=== PATIENT | male | born 1955 | race Caucasian/White ===

== ENCOUNTER 2017-06-26 21:43 | Emergency (ER) | payer MEDICAID ==
[2017-06-26 21:43] VITALS: BMI 27.3
[2017-06-26 21:55] VITALS: TEMP 98.6
[2017-06-26 22:04] LABS: HEMATOCRIT 52.4 % (35.0-51.0); MEAN CELL VOLUME 82.5 fL (80.0-94.0); MEAN CORPUSCULAR HEMOGLOBIN 27.9 pg (27.0-31.0); MEAN CORPUSCULAR HGB CONC 33.9 g/dL (33.0-37.0); RED CELL DISTRIBUTION WIDTH 15.4 % (11.5-14.5); WHITE BLOOD COUNT 11.1 K/uL (4.8-10.8)
[2017-06-26 22:14] LABS: CHLORIDE 93 mmol/L (98-107); SODIUM 133 mmol/L (132-148)
[2017-06-26 22:15] LABS: POTASSIUM 4.1 mmol/L (3.6-5.2)
[2017-06-26 22:16] LABS: AST/SGOT 29 U/L (17-59); BILIRUBIN,TOTAL 0.5 mg/dL (0.2-1.3); CARBON DIOXIDE 26 mmol/L (22-30); GFR AFRICAN-AMERICAN > 60
[2017-06-26 22:17] LABS: ALB/GLOB RATIO 1.3 (1.0-2.1); ALKALINE PHOSPHATASE 39 U/L (38-126); ALT/SGPT 23 U/L (21-72); BLOOD UREA NITROGEN 18 mg/dL (9-20); CALCIUM 9.1 mg/dl (8.6-10.4); GLUCOSE,RANDOM 90 mg/dL (75-110); TOTAL PROTEIN 8.1 g/dL (6.3-8.3)
[2017-06-26] MEDS ORDERED: Albuterol-Ipratrop 3 mg / 0.5 (3 ml) UD ONE (22:20)
[2017-06-26] MEDS ORDERED: Albuterol 0.083% Inhal Sol (2.5 mg/3 mL) UD INH ONE (22:28)
[2017-06-26] MEDS ORDERED: Albuterol 0.083% Inhal Sol (2.5 mg/3 mL) UD ONE (22:29)
--- NOTE | 2017-06-26 22:29 | C.PDOC ---
History Of Present Illness 61 year old male with a history of Diabetes and bronchospasms presents to the ED with complaints of constant shortness of breath exacerbated by deep breathing and right shoulder pain beginning four hours prior to arrival, while driving. Patient notes he smokes at least one pack of cigarettes a day. He denies fever, vomiting, or diarrhea. 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 ) History/Exam Limitations: no limitations Current Symptoms Are (Timing): Still Present Quality: "Pain" Associated Symptoms: denies: Dyspnea, Diaphoresis Modifying Factors: None Exacerbating Factors: Deep Breathing Alleviating Factors: None Recent travel outside of the [place]: No Past Medical History Reviewed: Historical Data, Nursing Documentation, Vital Signs Vital Signs: Last Vital Signs Temp 98.6 F 06/26/17 21:50 Pulse 98 H 06/27/17 00:19 Resp 20 06/27/17 00:19 BP 127/77 06/27/17 00:19 Pulse Ox 94 L 06/27/17 00:38 - Medical History PMH: No Chronic Diseases, Bronchitis, COPD - [facility] Procedures APPLICATION OF SPLINT (06/25/07) TETANUS TOXOID ADMINIST (06/25/07) Family History: States: Unknown Family Hx - Social History Hx Tobacco Use: Yes Hx Alcohol Use: Yes Hx Substance Use: No - Immunization History Hx Tetanus Toxoid Vaccination: No Hx Influenza Vaccination: No Hx Pneumococcal Vaccination: No Review Of Systems Constitutional: Negative for: Fever, Chills Cardiovascular: Negative for: Palpitations Respiratory: Positive for: Shortness of Breath Gastrointestinal: Negative for: Nausea, Vomiting, Abdominal Pain, Diarrhea Musculoskeletal: Positive for: Shoulder Pain (right shoulder ) Neurological: Negative for: Weakness, Numbness Physical Exam - Physical Exam Appears: Non-toxic, In Acute Distress (mild respiratory distress, 28 respirations per minute ) Skin: Warm, Dry Head: Atraumatic, Normacephalic Eye(s): bilateral: Normal Inspection, PERRL, EOMI Oral Mucosa: Moist Neck: Supple Chest: Symmetrical, No Deformity, No Tenderness Cardiovascular: Rhythm Regular, No Murmur Respiratory: Other (diminished breath sounds bilaterally, few expiratory wheezes. Labored breathing, poor air movement. ) Gastrointestinal/Abdominal: Soft, No Tenderness Extremity: Normal ROM, No Tenderness, No Pedal Edema, No Calf Tenderness, No Deformity, No Swelling Pulses: Left Dorsalis Pedis: Normal (2+), Right Dorsalis Pedis: Normal (2+) Neurological/Psych: Oriented x3 ED Course And Treatment - Laboratory Results Result Diagrams: 06/26/17 23:11 06/26/17 22:00 Lab Interpretation: Abnormal ECG: Interpreted By Me ECG Rhythm: Sinus Rhythm ECG Interpretation: Normal Interpretation Of ECG: ekg reveals a NSR at rate of 88BPM,no ectopy noted,axis sl R axis deviation,no acute ST changes,T waves wnl.No old tracings for comparison O2 Sat by Pulse Oximetry: 94 (nasal cannula ) - Radiology CXR: Interpreted by Me CXR Interpretation: Yes: No Acute Disease Progress Note: EKG, CXR, and labs were ordered. Patient was given albuterol and solu-medrol nebulizer treatment. Reevaluation Time: 00:28 (Pt is now wheeze free.Sats 93% on room air,speaking full sentences) Reassessment Condition: Improved Medical Decision Making Medical Decision Making: Pt with atypical R sided pleuritic CP along with SOB and wheezing ,heavy smoking hx.Pt given 1 hr cont nebs and steroids Progress note: 23:30 Spoke to patient's daughter and , explained pt has primarily a lung problem related to his history of smoking. If labs are in acceptable range and patient responds to treatment, patient will be discharged home. Disposition - Disposition Referrals: [facility] [place] [Outside] Disposition: HOME/ ROUTINE Disposition Time: 00:30 Condition: FAIR Additional Instructions: take antibiotics as directed.Take inhaler as needed,steroids as prescribed, return for worsening SOB Prescriptions: Albuterol/Ipratropium [Combivent Respimat] 1 puff IH QID PRN #1 inhaler PRN Reason: Shortness Of Breath Levofloxacin [Levaquin] 500 mg PO DAILY 10 Days #10 tablet Prednisone 50 mg PO DAILY #5 tab Forms: [employer] (Romanian) - Clinical Impression Clinical Impression: Asthmatic bronchitis - Scribe Statement The provider has reviewed the documentation as recorded by the Jonathanibe Andreea Lou All medical record entries made by the Scribe were at my direction and personally dictated by me. I have reviewed the chart and agree that the record accurately reflects my personal performance of the history, physical exam, medical decision making, and the department course for this patient. I have also personally directed, reviewed, and agree with the discharge instructions and disposition.
[2017-06-26 22:42] LABS: DRAW SITE RRA
[2017-06-26 23:05] VITALS: RESP 20
[2017-06-26 23:14] LABS: BASO # 0.1 K/uL (0.0-0.2); BASO % 0.5 % (0.0-2.0); EOS # 0.1 K/uL (0.0-0.7); EOS % 0.5 % (0.0-4.0); HEMATOCRIT 52.7 % (35.0-51.0); LYMPH # 3.1 K/uL (1.0-4.3); LYMPH % 16.3 % (20.0-40.0); MEAN CELL VOLUME 82.8 fL (80.0-94.0); MEAN CORPUSCULAR HEMOGLOBIN 28.1 pg (27.0-31.0); MEAN CORPUSCULAR HGB CONC 33.9 g/dL (33.0-37.0); MEAN PLATELET VOLUME 7.9 fL (7.2-11.7); MONO # 1.4 K/uL (0.0-0.8); MONO % 7.5 % (0.0-10.0); RED CELL DISTRIBUTION WIDTH 15.2 % (11.5-14.5); WHITE BLOOD COUNT 18.8 K/uL (4.8-10.8)
[2017-06-27 00:49] VITALS: BP 137/79; PULSE 100; O2SAT 93
--- NOTE | 2017-06-27 08:14 | RAD ---
PROCEDURE: CHEST RADIOGRAPH, 1 VIEW HISTORY: SOB COMPARISON: None available. FINDINGS: LUNGS: There is mild crowding of the bronchovascular markings at the bilateral lung bases however there is no acute infiltrate bilaterally. PLEURA: No pneumothorax or pleural fluid seen. CARDIOVASCULAR: Cardiac silhouette appears prominent, potentially is a function of technical magnification given portable technique. Limited intrinsic cardiomegaly is not completely excluded. OSSEOUS STRUCTURES: No significant abnormalities. VISUALIZED UPPER ABDOMEN: Normal. OTHER FINDINGS: None. IMPRESSION: No acute pulmonary disease is appreciated. Limited cardiomegaly not completely excluded.
--- NOTE | 2017-07-01 06:46 | CARD ---
APPROVED REPORT EKG Measurement Heart [id number] <Conclusion> Normal sinus rhythm Right axis deviation Abnormal ECG
== END 2017-06-27 00:51 | disposition home or self-care (01) ==
LOC: C.ER 21:43
DX: J45.909 Unspecified asthma, uncomplicated (principal)
CPT/HCPCS: 36600; 71010; 80053; 82803; 82948; 83880; 84484; 85025; 85027; 85378; 87040; 87804; 93005; 96374; 99285; J2930